=== PATIENT | male | born 1940 | race Two or more races ===

== ENCOUNTER 2018-07-11 16:48 | Outpatient (CLI) | payer OTHER | END 2018-07-11 16:56 | disposition home or self-care (01) | LOC: LAB 16:48 | DX: R97.20 Elevated prostate specific antigen [PSA] (principal) ==

== ENCOUNTER 2018-07-26 08:20 | Outpatient (CLI) | payer OTHER | END 2018-07-26 08:27 | disposition home or self-care (01) | LOC: SONOGRAMA 08:20 | DX: R97.20 Elevated prostate specific antigen [PSA] (principal) ==